=== PATIENT | female | born 1965 | race Two or more races ===

== ENCOUNTER 2017-10-03 08:19 | Day surgery (SDC) | payer OTHER ==
[2017-10-03 11:39] LABS: IMMEDIATE SPIN CROSSMATCH 1 1
[2017-10-03] MEDS ORDERED: MIDAZOLAM 1 MG/ML 2 ML INJ (16:11)
[2017-10-03] MEDS ORDERED: PROPOFOL 20 ML (16:11)
== END 2017-10-03 18:00 | disposition home or self-care (01) ==
LOC: GIL 08:19 → SDS 08:19 → GIL 18:00
DX: Z12.11 Encounter for screening for malignant neoplasm of colon (principal); K76.6 Portal hypertension; K31.89 Other diseases of stomach and duodenum; K25.9 Gastric ulcer, unspecified as acute or chronic, without hemorrhage or perforation; I10 Essential (primary) hypertension
CPT/HCPCS: 36430; 86850; 86900; 86901; 86945